=== PATIENT | male | born 1955 | race American Indian/Alaskan Native ===

== ENCOUNTER 2018-04-17 19:42 | Emergency (ER) | payer BC, OTHER ==
[2018-04-17 19:42] VITALS: BMI 29.7
[2018-04-17] MEDS ORDERED: Sodium Chloride 0.9% 1,000 ML IV STA (20:38)
--- NOTE | 2018-04-17 20:41 | ED PDOC ---
HPI: Back Time Seen by Provider: 04/17/18 20:16 Chief Complaint (Nursing): Back Pain Chief Complaint (Provider): back pain History Per: Patient History/Exam Limitations: no limitations Onset/Duration Of Symptoms: Hrs (3) Current Symptoms Are (Timing): Better Quality Of Discomfort: "Pain" Additional Complaint(s): 63 y/o male history of colorectal cancer (remission since 2014) presents for evaluation of acute onset left lower back pain x 3 hours. Patient states he was sitting at his desk when symptoms started, associated vomiting x 1. Patient states he took Tylenol prior to arrival with some improvement of pain. Denies fever, chest pain, shortness of breath, palpitations, changes in bowel movements, urinary symptoms. Past Medical History Reviewed: Historical Data, Nursing Documentation, Vital Signs Vital Signs: Last Vital Signs Temp 98.8 F 04/17/18 19:44 Pulse 80 04/17/18 19:44 Resp 16 04/17/18 19:44 BP Pulse Ox 100 04/17/18 19:44 - Medical History PMH: No Chronic Diseases - Surgical History Surgical History: Denies: Pacemaker Other surgeries: colon resection - Family History Family History: States: No Known Family Hx - Living Arrangements Living Arrangements: With Family - Home Medications Home Medications: Ambulatory Orders Medication Instructions Recorded Ciprofloxacin HCl [Cipro] 500 mg PO BID #9 tab 04/18/18 Naproxen [Naprosyn] 500 mg PO Q12 PRN #20 tablet 04/18/18 Ondansetron ODT [Zofran ODT] 4 mg PO Q8 PRN #10 odt 04/18/18 Tamsulosin [Flomax] 0.4 mg PO DAILY #10 cap 04/18/18 traMADol [Ultram] 50 mg PO Q8 PRN #10 tab 04/18/18 - Allergies Allergies/Adverse Reactions: Allergies Allergy/AdvReac Type Severity Reaction Status Date / Time No Known Allergies Allergy Verified 01/26/16 13:14 Review of Systems ROS Statement: Except As Marked, All Systems Reviewed And Found Negative Gastrointestinal: Positive for: Nausea, Vomiting Musculoskeletal: Positive for: Back Pain Physical Exam - Reviewed Nursing Documentation Reviewed: Yes Vital Signs Reviewed: Yes - Physical Exam Appears: Positive for: Well, Non-toxic, No Acute Distress Head Exam: Positive for: ATRAUMATIC, NORMAL INSPECTION, NORMOCEPHALIC Skin: Positive for: Normal Color Eye Exam: Positive for: Normal appearance ENT: Positive for: Normal ENT Inspection Cardiovascular/Chest: Positive for: Regular Rate, Rhythm Respiratory: Positive for: Normal Breath Sounds Gastrointestinal/Abdominal: Positive for: Bowel Sounds, Soft, Tenderness (mild left flank discomfort) Back: Positive for: L CVA Tenderness, Muscle Spasm (left lspine paravertebral tenderness). Negative for: Vertebral Tenderness, Decreased ROM Extremity: Positive for: Normal ROM Neurologic/Psych: Positive for: Alert, Oriented (x3) - Laboratory Results Result Diagrams: 04/17/18 21:05 04/17/18 21:05 - ECG O2 Sat by Pulse Oximetry: 100 - Progress ED Course And Treament: -cbc -cmp -urinalysis -CT renal protocol -IV NS bolus -IV toradol Date of service: 04/18/[address] Abdomen and pelvis without intravenous contrast. History Left flank pain. Comparison None. Technique Axial images of the abdomen and pelvis from lung bases to iliac crest without intravenous contrast enhancement. Coronal and sagittal reformats generated. Oral contrast also not administered. Radiation dose: Total exam DLP = 875.30 mGy-cm. This CT exam was performed using one or more of the following dose reduction techniques: Automated exposure control, adjustment of the mA and/or kV according to patient size, and/or use of iterative reconstruction technique. Findings Lower thorax Unremarkable. Liver Unremarkable. No gross lesion or ductal dilatation. Gallbladder and bile ducts Unremarkable. Pancreas Unremarkable. No gross lesion or ductal dilatation. Spleen Unremarkable. Adrenals Unremarkable. No mass. Kidneys and ureters There is moderate left hydroureteronephrosis. Two obstructing calculi are present in the distal left ureter measuring approximately 3 mm. There are bilateral renal cysts present measuring up to 5 cm. Note is made of multiple non-obstructing calculi in the mid pole of the left kidney, largest is 12 x 7 mm. Vasculature Unremarkable. No aortic aneurysm. Bowel Unremarkable. No obstruction. No gross mural thickening. Appendix Normal appendix. Peritoneum Unremarkable. No free fluid. No free air. Lymph nodes Unremarkable. No enlarged lymph nodes. Bladder Unremarkable. Reproductive Prostate gland is mildly enlarged. Bones No acute fracture. Other Findings Small fat-containing umbilical hernia is seen. Impression Moderate left hydroureteronephrosis. Two obstructing calculi in the distal left ureter. Bilateral renal cysts. Multiple non-obstructing calculi in the mid pole of the left kidney. Small fat-containing umbilical hernia. Mildly enlarged prostate gland. On re-eval, patient resting comfortably; states pain resolved. Tolerating PO Patient educated on findings, discharged with rx flomax (dose given in ED), cipro (dose given in ED), naproxen, tramadol, zofran Strainer given with instructions on use Advised follow up Urology Encouraged to increase fluid intake Return precautions given Disposition - Clinical Impression Clinical Impression: Kidney stone on left side Counseled Patient/Family Regarding: Studies Performed, Diagnosis, Need For Followup, Rx Given - Disposition Referrals: Ronaldo Mallory MD [Staff Provider] - Disposition: Routine/Home Disposition Time: 00:21 Condition: IMPROVED Prescriptions: Ciprofloxacin HCl [Cipro] 500 mg PO BID #9 tab Naproxen [Naprosyn] 500 mg PO Q12 PRN #20 tablet PRN Reason: Pain, Moderate (4-7) Ondansetron ODT [Zofran ODT] 4 mg PO Q8 PRN #10 odt PRN Reason: Nausea/Vomiting Tamsulosin [Flomax] 0.4 mg PO DAILY #10 cap traMADol [Ultram] 50 mg PO Q8 PRN #10 tab PRN Reason: Pain, Severe (8-10) Instructions: Kidney Stones in Adults, Renal Colic Forms: [employer] (Tristanian)
[2018-04-17 21:28] LABS: ALB/GLOB RATIO 1.3 (1.0-2.1); ALBUMIN 4.4 g/dL (3.5-5.0); ALT/SGPT 29 U/L (21-72); AST/SGOT 27 U/L (17-59); BLOOD UREA NITROGEN 15 mg/dl (9-20); CALCIUM 9.3 mg/dL (8.4-10.2); GFR NON-AFRICAN AMERICAN > 60
[2018-04-17 21:38] LABS: SQUAMOUS EPITHIAL < 1 /hpf (0-5); URINE BACTERIA RARE (<OCC); URINE BILIRUBIN NEGATIVE (NEGATIVE); URINE BLOOD MODERATE (NEGATIVE); URINE CLARITY SLIGHTY-CLOUDY (Clear); URINE COLOR YELLOW (YELLOW); URINE GLUCOSE (UA) NEG (NEGATIVE); URINE HYALINE CAST 0-2 /hpf (0-2); URINE LEUKOCYTE ESTERASE NEG Leu/uL (Negative); URINE PROTEIN 30 mg/dL (NEGATIVE)
[2018-04-17 21:42] LABS: BASO % 0.3 % (0.0-2.0); EOS % 0.5 % (0.0-4.0); HEMOGLOBIN 13.3 g/dL (12.0-18.0); LYMPH # 0.6 K/uL (1.0-4.3); LYMPH % 10.7 % (20.0-40.0); MEAN CELL VOLUME 88.8 fl (80.0-94.0); MEAN CORPUSCULAR HEMOGLOBIN 28.7 pg (27.0-31.0); MEAN CORPUSCULAR HGB CONC 32.3 g/dL (33.0-37.0); MEAN PLATELET VOLUME 8.8 fl (7.2-11.7); MONO # 0.4 K/uL (0.0-0.8); MONO % 6.2 % (0.0-10.0); NEUT # 4.9 K/uL (1.8-7.0); NEUT % 82.3 % (50.0-75.0); NRBC % 0.1 % (0.0-0.0); RBC 4.63 Mil/uL (4.40-5.90); RED CELL DISTRIBUTION WIDTH 15.6 % (11.5-14.5); WHITE BLOOD COUNT 5.9 K/uL (4.8-10.8)
[2018-04-18 00:20] VITALS: BP 137/76; PULSE 74; RESP 18; TEMP 98
[2018-04-18 00:22] VITALS: O2SAT 100
[2018-04-18] MEDS ORDERED: Oxycodone/Acetaminophen 5/325 mg Tab PO ONE (00:23)
[2018-04-18] MEDS ORDERED: Oxycodone/Acetaminophen 5/325 mg Tab ONE (00:27)
--- NOTE | 2018-04-18 09:59 | CT ---
Date of service: 04/17/2018 PROCEDURE: CT Abdomen and Pelvis without intravenous contrast HISTORY: left flank pain COMPARISON: None. TECHNIQUE: Helical CT of the abdomen and pelvis was performed without oral or intravenous contrast as per referring physician request. Coronal and sagittal reformats were generated. Contrast dose: None Radiation dose: Total exam DLP = 875.3 mGy-cm. This CT exam was performed using one or more of the following dose reduction techniques: Automated exposure control, adjustment of the mA and/or kV according to patient size, and/or use of iterative reconstruction technique. FINDINGS: LOWER THORAX: Limited bibasilar dependent atelectasis identified as well as mild cardiomegaly. No pulmonary vascular congestion appreciable. LIVER: There are a few scattered lucencies throughout the liver the majority which are under 1 cm size and poorly characterized. However, there is 1.6 cm lucency at the left lobe liver which measures 3 Hounsfield units and likely represents a small cyst. CT or MRI with contrast can confirm. GALLBLADDER AND BILE DUCTS: Unremarkable. PANCREAS: Unremarkable. No gross lesion or ductal dilatation. SPLEEN: Nose focal splenic pathology appreciable in this unenhanced exam however the spleen is enlarged to 14.2 cm. ADRENALS: Unremarkable. No mass. KIDNEYS AND URETERS: Bilateral renal cysts are identified. The dominant right renal cyst is seen at the upper pole exophytic cephalad measuring 5.9 x 6.1 cm with a lower pole minimally complex cyst with peripheral calcification measuring 3.8 x 4.1 cm. Additional parenchymal an intrarenal cysts are identified with questionable midpole parenchymal intrarenal calculus. No right hydronephrosis. Mild left hydronephrosis and hydroureter are identified due to obstructing calculus identified the distal left ureter measuring 3.5 mm 1-2 cm proximal to the left UV junction. There is a 2nd calculus immediately proximal to the left UVJ measuring 3.5 mm greatest dimension as well. No additional ureteral calculi. Multiple intrarenal calculi are nonobstructive at the left kidney including an upper pole intrarenal calculus which is irregular measuring 1.0 x 0.7 cm. Multiple left renal parenchymal cysts are identified including complex of renal cyst with coarse peripheral calcification versus abutting intra caliceal calcifications measuring 5.8 x 3.9 cm at the midpole anteriorly. VASCULATURE: Unremarkable. No aortic aneurysm. No aortic atherosclerotic calcification or mural plaque present. BOWEL: Unremarkable. No obstruction. No gross mural thickening. APPENDIX: Unremarkable. Normal appendix. PERITONEUM: Unremarkable. No free fluid. No free air. LYMPH NODES: Unremarkable. No enlarged lymph nodes. BLADDER: Unremarkable. REPRODUCTIVE: Unremarkable. BONES: Limited grade 1 spondylolisthesis L5-S1 with L5 posterior L5-S1 somewhat. Gross degenerative disc changes seen at L5-S1 including vacuum disc changes and extensive circumferential endplate osteophyte development. OTHER FINDINGS: None. IMPRESSION: 1. Two distal left ureteral calculi are proximal to the left ureteral vesicle junction measuring 3.5 mm in each case (greatest dimension) causing mild left hydroureteronephrosis. No right hydronephrosis. 2. Questionable punctate intrarenal calculus midpole right kidney versus parenchymal calcification. There is a least 1 intrarenal calculus identified at the left kidney measure 1.0 x 0.7 cm. Bilateral complex renal cysts are identified with minimal calcification associated at the right lower pole and extensive pleural calcification versus adjacent intra calyceal calculus at the midpole left kidney. Clinical follow-up recommended. Imaging follow-up is recommended in 1 year as well. 3. Nonspecific lucencies scattered at the liver the majority which are too small to characterize. 1.6 cm lucency at the left lobe is identified which likely representing a small cyst as it measured [address] or MRI with contrast can confirm. Preliminary report provided by Zoya, 04/17/2018 11:03 p.m..
== END 2018-04-18 00:35 | disposition home or self-care (01) ==
LOC: H.ER 19:42
DX: N20.0 Calculus of kidney (principal); N28.1 Cyst of kidney, acquired; K42.9 Umbilical hernia without obstruction or gangrene; N40.0 Benign prostatic hyperplasia without lower urinary tract symptoms
CPT/HCPCS: 74176; 80053; 81003; 85025; 87086; 99283; J1885; J7030